=== PATIENT | male | born 1975 | race Caucasian/White ===

== ENCOUNTER 2017-03-11 17:57 | Emergency (ER) | payer BC ==
[2017-03-11 18:20] VITALS: BP 131/67
--- NOTE | 2017-03-11 19:00 | ERNOTE ---
Abdominal HPI - Narrative Date of Service: 03/11/17 - General Chief Complaint: Abdominal Pain Time Seen by Provider: 03/11/17 18:29 Source: patient, RN notes reviewed Exam Limitations: no limitations - Immun/Allergies/Home Medications Immunizatons: IMMUNIZATION HX Immunizations Up to Date Yes History of Influenza Vaccine No Hx Pneumococcal Vaccination No Allergies/Adverse Reactions: Allergies Penicillins Allergy (Verified 03/11/17 18:20) Home Medications: HOME MEDICATIONS NK [No Home Medication] 03/11/17 [Last Taken Unknown] - History of Present Illness Narrative: 41 y/o male ambulatory to the ED with abdominal pain. He reports not having a bowel movement since 03-06-17. He states he usually goes 3 times a day. The pain began 2 days ago. He tried taking milk of magnesia today. He only passed a small amount of liquid. He also vomited today and has been having chills and diaphoresis. Prior Abdominal Problems: Present: none. Absent: similar symptoms Prior Treatment: Absent: recently seen Review of Systems - Review of Systems Constitutional: Present: chills, malaise. Absent: recent illness EYE: Present: no symptoms reported ENT: Present: no symptoms reported Respiratory: Absent: shortness of breath, cough Cardiology: Absent: chest pain, syncope Gastrointestinal/Abdominal: Present: nausea, vomiting, constipation, abdominal pain, eating less, drinking less Genitourinary: Absent: frequency, dysuria, hematuria Musculoskeletal: Absent: back pain, muscle pain Skin: Absent: rash, lesions Neurological: Absent: headache, dizziness/light-headedness Endocrine: Present: no symptoms reported Hematologic/Lymphatic: Present: no symptoms reported Psych: Present: no symptoms reported - Patient's Past Medical History Patient History - Medical: No pertinent hx Patient History - Cardiac/Respiratory: No pertinent hx Patient History - Cancer: No Hx of Cancer Patient History - Surgical Procedures: Appendectomy Patient History - Other: None - Social History Living Situations: other Abuse History: No History of abuse Psych History: No pertinent hx Smoking Status: Current some day smoker Have you smoked in the past 12 months: Yes Do you dip or chew tobacco: No Alcohol Use: occasionally Drug Use: none - Immunizations Immunizations Up to Date: Yes Hx Pneumococcal Vaccination: No History of Influenza Vaccine: No Physical Exam - Physical Exam General Appearance: Present: wd/wn, alert, no apparent distress, other - appropriately dressed/groomed Neck: Present: normal inspection, nontender, supple Respiratory: Present: no respiratory distress, normal breath sounds, no accessory muscle use, lungs clear Cardiovascular/Chest: Present: no murmur, normal peripheral pulses, tachycardia Gastrointestinal/Abdominal: Present: soft, tenderness - lower abdomen - moderate , abnormal bowel sounds - hyperactive, distended. Absent: mass, hernia Extremity Exam: Present: normal inspection, normal range of motion Neurological Exam: Present: alert, oriented, normal mood/affect, no motor/ sensory deficits Skin Exam: Present: normal color, warm/dry ED Progress - Results and Orders Patient's Lab Results:: I have reviewed the patient's lab results. - Vital Signs Patient's Vital Signs:: I have reviewed the patient's vital signs. Vital Signs: Vital Signs 03/11/17 18:16 Temperature 37.8 C H Pulse Rate 101 H Respiratory 15 Rate Blood Pressure 131/67 O2 Sat by Pulse 96 Oximetry - X-Ray X-Ray #1 X-Ray: abdomen Interpretation: Reviewed by me X-ray Comments: Technique: Supine and upright views the abdomen utilizing 4 total images. Findings: There is scattered air seen throughout the large and small bowel. Some distention of the small bowel and colon is seen. However no dilation. There is scattered air-fluid level seen throughout. Overall findings consistent with viral enteritis. No evidence for obstruction. No free air or free fluid. Osseous structures are normal. IMPRESSION: ABNORMAL BOWEL GAS PATTERN SUGGESTIVE OF VIRAL ENTERITIS. NO EVIDENCE FOR OBSTRUCTION. Electronically signed by Jose Bueno D.O.. - Progress/Reassessment Chief Complaint: Abdominal Pain Progress:: Unchanged Plan - Plan Plan: WBC elevated at 16.3, numerous air-fluid levels on abdominal xray without significant stool retention as expected. Discussed need for CT scan to further evaluate the problem, patient has to go to work and does not want to stay long enough to do this, explained risks associated with allowing an undiagnosed problem to continue, patient understands and agrees to sign AMA. Plans to come back for CT when he can. Departure - Departure Clinical Impression: Abdominal pain of unknown cause Disposition: Against medical advice Condition: Stable
[2017-03-11 19:04] LABS: Hematocrit 41.8 % (42.0-52.0); Hemoglobin 14.4 gm/dL (13.5-18.0); Mean Cell Volume 87.1 fl (78-100); Mean Corpuscular Hgb Conc 34.4 g/dl (32-36); Neutrophil # 12.4 K/mm3 (1.3-6.0); Neutrophil % 76.1 % (42-75.0); Platelet Count 206 K/mm3 (150-450); Red Cell Distribution Width 11.7 % (11.5-14.0); White Blood Count 16.3 K/mm3 (4.0-10.5)
[2017-03-11 19:10] LABS: Total Cells Counted 100
[2017-03-11 19:14] LABS: Albumin * 3.6 gm/dl (3.4-5.0); Anion Gap 13.1 mmol/L (6.8-13.8); Bilirubin, Total 0.8 mg/dL (0.0-1.1); Carbon Dioxide 28.6 mmol/L (24-32.6); Potassium 3.7 mmol/L (3.4-4.6); Total Protein 7.2 gm/dL (6.2-8.2)
[2017-03-11 19:20] LABS: Ca. Corrected For Albumin 8.7 mg/dL (8.4-10.2); Calcium * 8.7 mg/dL (7.9-10.9)
[2017-03-11 19:29] LABS: Lymphocyte 14 % (20-51); Monocyte 8 % (0-9); Neutrophil 78 % (42-75); Neutrophil # 12.7 K/mm3 (1.3-6.0); Platelet Estimate Normal (NORMAL); RBC Morphology Normal (NORMAL)
== END 2017-03-11 19:31 | disposition left against medical advice (07) ==
LOC: ER 17:57
DX: R10.9 Unspecified abdominal pain (principal); F17.210 Nicotine dependence, cigarettes, uncomplicated; Z53.29 Procedure and treatment not carried out because of patient's decision for other reasons

== ENCOUNTER 2017-03-12 06:34 | Emergency (ER) | payer BC ==
--- NOTE | 2017-03-12 06:44 | ERNOTE ---
<Tylor Blair - Last Filed: 03/14/17 06:15> Abdominal HPI - Narrative Date of Service: 03/12/17 - General Chief Complaint: Abdominal Pain Source: patient - Immun/Allergies/Home Medications Immunizatons: IMMUNIZATION HX Immunizations Up to Date Yes History of Influenza Vaccine No Hx Pneumococcal Vaccination No Allergies/Adverse Reactions: Allergies Penicillins Allergy (Verified 03/12/17 06:45) Home Medications: HOME MEDICATIONS Ciprofloxacin HCl [Cipro] 500 mg PO BID #20 tab 03/12/17 [Last Taken Unknown] metroNIDAZOLE [Flagyl] 500 mg PO TID #30 tablet 03/12/17 [Last Taken Unknown] - History of Present Illness Narrative: 41 year old that has been having lower abdominal pain for three days. The pain is intermittent and is improving. It is described as being sharp, and occurs without aggravation. He does have feelings of being hungry but does not wish to eat. Denies any vomiting or back pain. Yesterday he was seen in the ED, and found to have a low grade fever. It had been recommended that he have a CT scan done yesterday, but he declined. He returns today for the CT scan to be done. Denies any dysuria, urinary frequency or pus at the penis. The last bowel movement was last Sunday. Took Milk of magnesia x2 without significant results. Abdominal plain film done yesterday revealed possible enteritis, and no significant stool burden. Timing: intermittent Quality: mild, moderate Activities at Onset: none Modifying Factors - (Improves): Present: other - nothing Modifying Factors - (Worsens): Present: other Associated Symptoms: Present: denies symptoms Prior Abdominal Problems: Present: none Prior Treatment: Present: recently seen Review of Systems - Review of Systems Constitutional: Present: no symptoms reported EYE: Present: no symptoms reported ENT: Present: no symptoms reported Respiratory: Present: no symptoms reported Cardiology: Present: no symptoms reported Gastrointestinal/Abdominal: Present: See HPI Genitourinary: Present: no symptoms reported Musculoskeletal: Present: no symptoms reported Skin: Present: no symptoms reported Neurological: Present: no symptoms reported Endocrine: Present: no symptoms reported Hematologic/Lymphatic: Present: no symptoms reported Psych: Present: no symptoms reported - Patient's Past Medical History Patient History - Medical: No pertinent hx Patient History - Cardiac/Respiratory: No pertinent hx Patient History - Cancer: No Hx of Cancer Patient History - Surgical Procedures: Appendectomy Patient History - Other: None - Social History Living Situations: home Abuse History: No History of abuse Psych History: No pertinent hx Alcohol Use: occasionally Drug Use: none - Immunizations Immunizations Up to Date: Yes Hx Pneumococcal Vaccination: No History of Influenza Vaccine: No Physical Exam - Physical Exam General Appearance: Present: no apparent distress Eye Exam: Normal inspection: bilateral, PERRL: bilateral Ears, Nose, Throat: Present: normal ENT inspection Neck: Present: normal inspection Respiratory: Present: no respiratory distress Cardiovascular/Chest: Present: regular rate, rhythm Gastrointestinal/Abdominal: Present: tenderness - mild at the area of RLQ and LLQ. Back Exam: Present: normal inspection Extremity Exam: Present: normal inspection Neurological Exam: Present: alert, oriented, normal mood/affect Skin Exam: Present: normal color, warm/dry ED Progress - Vital Signs Patient's Vital Signs:: I have reviewed the patient's vital signs. Vital Signs: Vital Signs 03/12/17 06:36 Temperature 37.8 C H Blood Pressure 131/67 - Progress/Reassessment Chief Complaint: Abdominal Pain - Transfer of Care Physician Sign Out: Tylor Blair Receiving Physician: Luz Mcclendon Pending Results: CT/MRI results Departure - Departure Clinical Impression: Acute diverticulitis Disposition: Home self-care Condition: Good Instructions: Diverticulitis, [id number] Additional Instructions: stay on a liquid diet till the pain is better and then advance slowly take ibuprofen as needed for pain return to the ER for worsening pain or bleeding Referrals: Beth Proctor MD [Staff Physician] - Prescriptions: Ciprofloxacin HCl [Cipro] 500 mg PO BID #20 tab metroNIDAZOLE [Flagyl] 500 mg PO TID #30 tablet <Luz Mcclendon - Last Filed: 03/18/17 03:26> Abdominal HPI - Immun/Allergies/Home Medications Immunizatons: IMMUNIZATION HX Immunizations Up to Date Yes History of Influenza Vaccine No Hx Pneumococcal Vaccination No ED Progress - Results and Orders Patient's Lab Results:: I have reviewed the patient's lab results. - Vital Signs Patient's Vital Signs:: I have reviewed the patient's vital signs. Vital Signs: Vital Signs 03/12/17 03/12/17 06:36 07:35 Temperature 37.8 C H Pulse Rate 82 87 Respiratory 12 12 Rate Blood Pressure 115/74 118/84 O2 Sat by Pulse 95 97 Oximetry - CT/Ultrasound CT/Ultrasound Narrative: CT abdomen: acute uncomplicated diverticulitis - Progress/Reassessment Progress Note-Subjective: 03/12/17 08:55 pain 2/10 at rest, comfortable discussed results and plan with patient
[2017-03-12 07:06] LABS: Hematocrit 42.8 % (42.0-52.0); Hemoglobin 14.7 gm/dL (13.5-18.0); Mean Cell Volume 87.9 fl (78-100); Mean Corpuscular Hemoglobin 30.2 pg (27-31); Mean Corpuscular Hgb Conc 34.3 g/dl (32-36); Mean Platelet Volume 10.8 fl (6.0-9.5); Neutrophil # 11.7 K/mm3 (1.3-6.0); Neutrophil % 76.4 % (42-75.0); Platelet Count 207 K/mm3 (150-450); Red Blood Count 4.87 M/mm3 (4.7-6.0); Red Cell Distribution Width 11.8 % (11.5-14.0); White Blood Count 15.3 K/mm3 (4.0-10.5)
[2017-03-12 07:20] LABS: Albumin * 3.5 gm/dl (3.4-5.0); Anion Gap 12.4 mmol/L (6.8-13.8); BUN/Creatinine Ratio 10.5 (9.0-21.6); Bilirubin, Total 1.1 mg/dL (0.0-1.1); Ca. Corrected For Albumin 8.7 mg/dL (8.4-10.2); Calcium * 8.6 mg/dL (7.9-10.9); Carbon Dioxide 28.6 mmol/L (24-32.6); Total Protein 7.4 gm/dL (6.2-8.2)
[2017-03-12 09:14] VITALS: BP 120/86
== END 2017-03-12 09:14 | disposition home or self-care (01) ==
LOC: ER 06:34
DX: K57.92 Diverticulitis of intestine, part unspecified, without perforation or abscess without bleeding (principal)